=== PATIENT | male | born 1960 | race Caucasian/White ===

== ENCOUNTER 2018-01-19 14:42 | Emergency (ER) | payer BC, OTHER ==
[~2018-01-19] VITALS: Ht 175.3 cm; Wt 80.1 kg
[2018-01-19 14:44] VITALS: TEMP 36.5; Ht 175.3 cm; Wt 80.1 kg
--- NOTE | 2018-01-19 15:09 | EMERGENCY ROOM VISIT NOTE ---
History Report prepared by Rigoberto: Haroon Singleton Under the Supervision of: Dr. Vicente Veronica M.D. First contact with patient: 14:52 Chief Complaint: EYE ASSESSMENT Stated Complaint: WAVES AND COLORS SWIRLING IN BOTH EYES History of Present Illness The patient is a 57 year old white male with a past medical history of asthma and cataracts who presents to the Emergency Room with complaints of now- resolved visual irregularities that began today a few hours ago. The patient states that he could see "a swirl of waves" in his field of vision that he described as "heat waves" coming off an asphalt road in the heat. On the patient 's drive to the hospital the symptoms spontaneously resolved. The symptoms lasted about 10 minutes. He does have a headache currently, but not when the other symptoms were present. He has no history of migraines, but has had cataract surgery in both eyes. He denies and chest pain, shortness of breath, fevers, or cough. Source of History: patient Onset: a few hours ago Position: eye (bilateral) Quality: other ("a swirl of waves") Timing: resolved Associated Symptoms: + headache, No fevers, No cough, No chest pain, No SOB Review of Systems See HPI for pertinent positives and negatives. A total of ten systems were reviewed and were otherwise negative. Past Medical & Surgical Medical Problems: (1) Asthma Social History Smoking Status: Never Smoker Alcohol Use: none Drug Use: none Marital Status: Housing Status: lives with family Occupation Status: employed Current/Historical Medications Scheduled Fexofenadine-Pseudoephedrine (Debbie-D 24 Hour Allergy), 1 TAB PO DAILY Fluticasone Prop/Salmeterol (Advair Diskus 250/50 60 Dose), 1 PUFF INH BID Scheduled PRN Albuterol Hfa (Ventolin Hfa), 2 PUFFS INH Q4 PRN for SOB/Wheezing Allergies Coded Allergies: No Known Allergies (Unverified , 03/25/15) Physical Exam Vital Signs Date Time Temp Pulse Resp B/P (MAP) Pulse Ox O2 Delivery O2 Flow Rate FiO2 01/19/18 17:10 55 18 141/83 98 01/19/18 14:44 36.5 82 18 131/76 98 Room Air Physical Exam GENERAL: Awake, alert, well-appearing, NAD HENT: Normocephalic, atraumatic. Braces in place. EYES: Normal conjunctiva. Sclera non-icteric. PERRL. No anisocoria. 20/25 on the right with glasses, 20/30 on the left with glasses. No visual field deficits. NECK: Supple. No nuchal rigidity. FROM. RESPIRATORY: CTAB, no rhonchi, wheezing, crackles CARDIAC: RRR, no MRG ABDOMEN: Soft, NTND, BS+ MSK: No chest wall TTP, no LE edema NEURO: CN 2-12 intact, 5/5 upper and lower extremity strength, no dysmetria, no drift, good finger to nose, no sensory deficits. Finger count grossly normal. SKIN: No rash or jaundice noted. Medical Decision & Procedures ER Provider Diagnostic Interpretation: Radiology results as stated below per my review and radiologist interpretation: CT OF THE HEAD WITHOUT CONTRAST CLINICAL HISTORY: Headache. Evaluate for hemorrhage. COMPARISON STUDY: No previous studies for comparison. CT DOSE: 537.48 mGy.cm TECHNIQUE: Helical axial images of the head were obtained without IV contrast. Automated exposure control was utilized for the study. A dose lowering technique was utilized adhering to the principles of ALARA. FINDINGS: No acute intracranial hemorrhage, midline shift or mass effect is present. Ventricular system is normal. Basilar cisterns are patent. Montgomery-white differentiation is maintained. There are no findings to suggest acute dural sinus thrombosis or acute territorial infarct. Mild ethmoid sinus mucosal thickening is noted. Mastoid air cells are clear. There are no significant calvarial abnormalities. IMPRESSION: No acute intracranial findings. Electronically signed by: Francis Miller M.D. 01/19/2018 3:49 PM Dictated Date/Time: 01/19/2018 3:47 PM Laboratory Results 01/19/18 15:30 Red Blood Count 4.75, Mean Corpuscular Volume 91.2, Mean Corpuscular Hemoglobin 32.2, Mean Corpuscular Hemoglobin Concent 35.3, Mean Platelet Volume 11.3, Neutrophils (%) (Auto) 54.7, Lymphocytes (%) (Auto) 28.2, Monocytes (%) (Auto) 10.1, Eosinophils (%) (Auto) 5.9, Basophils (%) (Auto) 0.9, Neutrophils # (Auto ) 3.14, Lymphocytes # (Auto) 1.62, Monocytes # (Auto) 0.58, Eosinophils # (Auto ) 0.34, Basophils # (Auto) 0.05 01/19/18 15:30 Test 01/19/18 15:30 White Blood Count 5.74 K/uL (4.8-10.8) Red Blood Count 4.75 M/uL (4.7-6.1) Hemoglobin 15.3 g/dL (14.0-18.0) Hematocrit 43.3 % (42-52) Mean Corpuscular Volume 91.2 fL (80-100) Mean Corpuscular Hemoglobin 32.2 pg (25-34) Mean Corpuscular Hemoglobin Concent 35.3 g/dl (32-36) Platelet Count 234 K/uL (130-400) Mean Platelet Volume 11.3 fL (7.4-10.4) Neutrophils (%) (Auto) 54.7 % Lymphocytes (%) (Auto) 28.2 % Monocytes (%) (Auto) 10.1 % Eosinophils (%) (Auto) 5.9 % Basophils (%) (Auto) 0.9 % Neutrophils # (Auto) 3.14 K/uL (1.4-6.5) Lymphocytes # (Auto) 1.62 K/uL (1.2-3.4) Monocytes # (Auto) 0.58 K/uL (0.11-0.59) Eosinophils # (Auto) 0.34 K/uL (0-0.5) Basophils # (Auto) 0.05 K/uL (0-0.2) RDW Standard Deviation 42.3 fL (36.4-46.3) RDW Coefficient of Variation 12.8 % (11.5-14.5) Immature Granulocyte % (Auto) 0.2 % Immature Granulocyte # (Auto) 0.01 K/uL (0.00-0.02) Prothrombin Time 10.1 SECONDS (9.0-12.0) Prothromb Time International Ratio 1.0 (0.9-1.1) Activated Partial Thromboplast Time 27.3 SECONDS (21.0-31.0) Partial Thromboplastin Ratio 1.1 Anion Gap 7.0 mmol/L (3-11) Est Creatinine Clear Calc Drug Dose 63.4 ml/min Estimated GFR () 71.7 Estimated GFR (Non- 61.9 BUN/Creatinine Ratio 14.0 (10-20) Calcium Level 8.7 mg/dl (8.5-10.1) Magnesium Level 2.2 mg/dl (1.8-2.4) Lyme Disease IgG Antibody NEG (NEG) Laboratory results reviewed by me Medications Administered Medications (Trade) Dose Ordered Sig/Pavan Route Start Time Stop Time Status Last Admin Dose Admin Prochlorperazine Edisylate (Compazine Inj) 10 mg NOW STAT IV 01/19/18 15:10 01/19/18 15:13 DC 01/19/18 15:25 10 MG Acetaminophen (Tylenol Tab) 1,000 mg NOW STAT PO 01/19/18 15:10 01/19/18 15:13 DC 01/19/18 15:26 1,000 MG Sodium Chloride 500 ml @ 999 mls/hr Q31M STAT IV 01/19/18 15:10 01/19/18 15:40 DC 01/19/18 15:25 999 MLS/HR ECG Per My Interpretation Indication: other (Vision irregularities, headache) Rate (beats per minute): 55 Rhythm: sinus bradycardia Findings: other (No STS changes or TWI, Normal [place], Normal intervals) ED Course 1500: The patient was evaluated in room C10. A complete history and physical exam was performed. 0: I discussed with Dr. Jimenes - Neurology. He agrees with work-up and treatment plan. Medical Decision The patient is a 57 year old white male with a past medical history of asthma and cataracts who presents to the Emergency Room with complaints of now- resolved visual irregularities that began today a few hours ago. Nursing notes reviewed. Ancillary studies and prior records reviewed. Differential diagnosis: Etiologies such as migraine headache, meningitis, sinusitis, CO exposure, ICH, SAH, infection, tumor, headache, sinus thrombosis, arterial dissection, as well as others were entertained. Patient was seen and evaluated the bedside. Patient was concerned as he had some vision changes. Patient does use both nearsighted and farsighted prescription glasses. Patient is recently been seen by an eye physician without any issues. The patient is not diabetic and denies any trauma. Patient denies any numbness tingling or weakness. The patient's visual changes lasted only about 10 minutes. The patient does have mild headache on the left side. Patient does not take any blood thinning medications. Patient has a normal and nonfocal neurology. Patient's visual exam is fairly unremarkable. Patient's eyes are not proptotic and he does not have any eye pain. No APD no visual field deficits. The patient does have 20/30 in the left and 20/25 in the right with his corrective lenses. Patient did blood work completed along with an EKG and Lyme's. Patient's blood work EKG and CT brain were unremarkable. I did speak with the on-call neurologist who agrees that this is likely migrainous in nature. The patient may follow up with his PCP. Patient is a Lyme test is equivocal for IgM. The patient denies any recent hiking or camping in the patient denies any rashes. This will be sent for further confirmatory testing and if positive the patient will be called and started on antibiotics. I did discuss results with the patient discussed to return if he has any worsening or persistent symptoms. Patient was given strict follow-up, discharge, and return precautions. All questions were answered. Patient was deemed suitable for outpatient follow-up at this time. Patient agreed with the plan of care and was safely discharged home. Medication Reconcilliation Current Medication List: was personally reviewed by me Blood Pressure Screening Patient's blood pressure: Normal blood pressure Consults Time Called: 1623 Consulting Physician: Dr. Jalil Carter Returned Call: [address] Jalil Carter. He agrees with work-up and treatment plan. Impression Primary Impression: Migraine with aura Additional Impression: Changes in vision Scribe Attestation The scribe's documentation has been prepared under my direction and personally reviewed by me in its entirety. I confirm that the note above accurately reflects all work, treatment, procedures, and medical decision making performed by me. Departure Information Dispostion Home / Self-Care Referrals Agustin Roy MD (PCP) Patient Instructions ED Headache Migraine, My [facility] Additional Instructions Please return to the emergency department if you have worsening or recurrent symptoms not amenable to at-home treatment. Please call for a follow-up appointment with her primary care physician. Please take your medications as prescribed. If you have other concerns and/or complaints please feel free to also call your primary care physician's office or return the ED for further evaluation, management, and treatment. You may take 600 mg Ibuprofen every 6 hours as needed for pain/fever with food unless told by your physician not to take NSAIDs. You may take tylenol 650 mg every 6 hours as needed for pain/fever unless told by your physician to not take it or have liver problems. You may take motrin and tylenol separately or at the same time. Take your medications as prescribed. Please call your primary care physician's office tomorrow for a follow-up appointment. You likely had a migraine headache with aura. Please return if you have any worsening or persistent symptoms. You have been examined and treated today on an emergency basis only. This is not a substitute for, or an effort to provide, complete comprehensive medical care. It is impossible to recognize and treat all injuries or illnesses in a single emergency department visit. It is therefore important that you follow up closely with [facility], your PCP, and/or your specialist(s). Call as soon as possible for an appointment. Thank you for your time and consideration. I look forward to speaking with you again soon. Please don't hesitate to call us if you have any questions. Problem Qualifiers Primary Impression: Migraine with aura Status migrainosus presence: without status migrainosus Intractability: not intractable Qualified Codes: G43.109 - Migraine with aura, not intractable, without status migrainosus
[2018-01-19] MEDS ORDERED: SODIUM CHLORIDE 0.9% 500ML 500 ML IV STA (15:10)
[2018-01-19] MEDS ORDERED: ACETAMINOPHEN 500 MG TAB PO STA (15:10)
[2018-01-19] MEDS ORDERED: PROCHLORPERAZINE 5 MG/ML 2 ML VIAL IV STA (15:10)
[2018-01-19] MEDS ORDERED: ADVIN25/60 INH (15:35)
[2018-01-19] MEDS ORDERED: FEXO1TAB58 PO (15:35)
[2018-01-19] MEDS ORDERED: VNTHFA/IN INH (15:38)
[2018-01-19 15:43] LABS: BASO % 0.9 %; BASO ABS # 0.05 K/uL (0-0.2); EOS % 5.9 %; EOS ABS # 0.34 K/uL (0-0.5); HEMATOCRIT 43.3 % (42-52); HEMOGLOBIN 15.3 g/dL (14.0-18.0); IG# 0.01 K/uL (0.00-0.02); LYMPH % 28.2 %; LYMPH ABS # 1.62 K/uL (1.2-3.4); MEAN CELL VOLUME 91.2 fL (80-100); MEAN CORPUSCULAR HEMOGLOBIN 32.2 pg (25-34); MEAN CORPUSCULAR HGB CONC 35.3 g/dl (32-36); MEAN PLATELET VOLUME 11.3 fL (7.4-10.4); MONO % 10.1 %; MONO ABS # 0.58 K/uL (0.11-0.59); NEUT % 54.7 %; NEUT ABS # 3.14 K/uL (1.4-6.5); PLATELET COUNT 234 K/uL (130-400); RED CELL DISTRIBUTION WIDTH CV 12.8 % (11.5-14.5); RED CELL DISTRIBUTION WIDTH SD 42.3 fL (36.4-46.3); WHITE BLOOD COUNT 5.74 K/uL (4.8-10.8)
--- NOTE | 2018-01-19 15:50 | DIAGNOSTIC IMAGING REPORT ---
CT OF THE HEAD WITHOUT CONTRAST CLINICAL HISTORY: Headache. Evaluate for hemorrhage. COMPARISON STUDY: No previous studies for comparison. CT DOSE: 537.48 mGy.cm TECHNIQUE: Helical axial images of the head were obtained without IV contrast. Automated exposure control was utilized for the study. A dose lowering technique was utilized adhering to the principles of ALARA. FINDINGS: No acute intracranial hemorrhage, midline shift or mass effect is present. Ventricular system is normal. Basilar cisterns are patent. Montgomery-white differentiation is maintained. There are no findings to suggest acute dural sinus thrombosis or acute territorial infarct. Mild ethmoid sinus mucosal thickening is noted. Mastoid air cells are clear. There are no significant calvarial abnormalities. IMPRESSION: No acute intracranial findings. Electronically signed by: Francis Miller M.D. 01/19/2018 3:49 PM Dictated Date/Time: 01/19/2018 3:47 PM
[2018-01-19 15:54] LABS: PTT PATIENT 27.3 SECONDS (21.0-31.0)
[2018-01-19 16:47] LABS: CALCIUM 8.7 mg/dl (8.5-10.1); CREATININE 1.27 mg/dl (0.60-1.40); POTASSIUM 4.1 mmol/L (3.5-5.1)
[2018-01-19 17:10] VITALS: BP 141/83; PULSE 55; O2SAT 98
== END 2018-01-19 17:43 | disposition home or self-care (01) ==
LOC: C.EDB 14:43 → C.EDC 17:43
DX: G43.109 Migraine with aura, not intractable, without status migrainosus (principal); H53.30 Unspecified disorder of binocular vision; H26.9 Unspecified cataract; Z98.890 Other specified postprocedural states; J45.909 Unspecified asthma, uncomplicated; Z79.51 Long term (current) use of inhaled steroids